=== PATIENT | male | born 1980 | race Two or more races ===

== ENCOUNTER 2017-10-04 07:27 | Emergency (ER) | payer SELFPAY ==
[2017-10-04] MEDS ORDERED: Nitroglycerin 0.4 MG TAB (25 Tab Bottle) ONE (07:51)
[2017-10-04 07:58] LABS: #Basophils 0.2 thou/uL (0.0-0.2); #Eosinphils 0.3 thou/uL (0.0-0.7); #Lymphocytes 2.3 thou/uL (1.20-3.40); #Monocytes 0.5 thou/uL (0.11-0.59); #Neutrophils 4.8 thou/uL (1.40-6.50); %Basophils 2.1 % (0.0-1.0); %Eosinophils 3.4 % (0.0-10.0); %Lymphocytes 29.1 % (21.0-51.0); %Monocytes 5.9 % (0.0-10.0); %Neutrophils 59.5 % (42.0-75.0); Hemoglobin 16.4 g/dL (14.0-18.0); Mean Corpuscular HGB CONC 33.8 g/dL (32.0-36.0); Mean Corpuscular Hemoglobin 32.1 pg (27.0-31.0); Mean Platelet Volume 6.5 fL (7.4-10.4); Platelet Count 270 thou/uL (130-400); RBC Distribution Width 11.3 % (11.5-14.5)
[2017-10-04 08:14] LABS: ALT (SGPT) 97 U/L (8-55); AST (SGOT) 58 U/L (5-34); Albumin 4.7 g/dL (3.5-5.0); Alkaline Phosphatase 98 U/L (40-150); Anion Gap 17 mmol/L (10-20); BUN (Urea Nitrogen) 10 mg/dL (8.9-20.6); Bilirubin, Total 0.8 mg/dL (0.2-1.2); Calc. Creatinine Clearance 0 mL/min (70-130); Calcium 9.6 mg/dL (7.8-10.44); Carbon Dioxide 19 mmol/L (22-29); Chloride 104 mmol/L (98-107); Estimated GFR-MDRD 85; Globulin 3.4 g/dL (2.4-3.5); Glucose 94 mg/dL (70-105); Lipase 25 U/L (8-78); Potassium 4.7 mmol/L (3.5-5.1); Protein, Total 8.1 g/dL (6.0-8.3); Sodium 133 mmol/L (136-145)
[2017-10-04 08:15] LABS: CKMB 1.2 ng/mL (0-6.6); Troponin I Less than 0.010 ng/mL (< 0.028)
--- NOTE | 2017-10-04 09:02 | RAD ---
CHEST 1 VIEW: Date: 10/04/17 HISTORY: Chest pain. FINDINGS: No comparison. Cardiac silhouette is magnified in projection. Ill-defined somewhat linear opacity projects over the left infrahilar level and extends to the left lateral lung base, overlying the posterior aspect of th e left lower rib. Mediastinum remains midline. No evidence of pneumothorax. IMPRESSION: Subtle left lower lobe infiltrate-like parenchymal opacity. Clinical correlation regarding other sign s and symptoms of left basilar pneumonitis versus other process is required. Please consider upright PA and lateral views of the chest when patient can undergo that exam. POS: [facility]
== END 2017-10-04 11:06 | disposition home or self-care (01) ==
LOC: ERS 07:27
DX: J18.9 Pneumonia, unspecified organism (principal); F17.210 Nicotine dependence, cigarettes, uncomplicated
CPT/HCPCS: 71045; 80053; 82553; 83690; 84484; 85025; 93005; 96360

== ENCOUNTER 2017-10-06 16:48 | Emergency (ER) | payer SELFPAY ==
[2017-10-06] MEDS ORDERED: Lidocaine 1% w/Epinephrine 1:100K 20 ML VIAL ONE (17:27)
[2017-10-06] MEDS ORDERED: Adacel (T-DAP) 0.5 ML VIAL ONE (18:19)
[2017-10-06] MEDS ORDERED: HYDROcodone/Acetaminophen 5/325 mg Tablet ONE (18:19)
[2017-10-06] MEDS ORDERED: Bacitracin Zinc 1 Packet ONE (18:26)
--- NOTE | 2017-10-06 19:25 | RAD ---
FOUR VIEWS OF THE RIGHT KNEE: 10/06/17 INDICATION: History of fall with right knee pain. COMPARISON: None. FINDINGS: No acute fracture or subluxation is evident. No joint capsular distention is evident. Soft tissues ar e normal appearing. IMPRESSION: No acute osseous abnormality. POS: [facility]
== END 2017-10-06 18:34 | disposition home or self-care (01) ==
LOC: ERS 16:48
DX: S81.011A Laceration without foreign body, right knee, initial encounter (principal); F17.210 Nicotine dependence, cigarettes, uncomplicated; W10.9XXA Fall (on) (from) unspecified stairs and steps, initial encounter
CPT/HCPCS: 12002; 90471; 90715; J2001

== ENCOUNTER 2017-10-28 23:06 | Emergency (ER) | payer SELFPAY ==
[2017-10-29] LABS: #Basophils 0.1 thou/uL (0.0-0.2); #Lymphocytes 2.4 thou/uL (1.20-3.40); #Monocytes 0.6 thou/uL (0.11-0.59); #Neutrophils 6.6 thou/uL (1.40-6.50); %Basophils 0.9 % (0.0-1.0); %Eosinophils 0.4 % (0.0-10.0); %Lymphocytes 24.9 % (21.0-51.0); %Monocytes 5.7 % (0.0-10.0); %Neutrophils 68.1 % (42.0-75.0); Hemoglobin 14.1 g/dL (14.0-18.0); Mean Corpuscular HGB CONC 34.7 g/dL (32.0-36.0); Mean Corpuscular Hemoglobin 32.3 pg (27.0-31.0); Mean Corpuscular Volume 92.8 fL (78.0-98.0); Mean Platelet Volume 6.2 fL (7.4-10.4); Platelet Count 268 thou/uL (130-400); Red Blood Cell (RBC) Count 4.37 mill/uL (4.70-6.10); White Blood Cell (WBC) Count 9.7 thou/uL (4.8-10.8)
[2017-10-29] MEDS ORDERED: Lorazepam 2 MG/ML VIAL ONE (00:19)
[2017-10-29 00:21] LABS: ALT (SGPT) 77 U/L (8-55); AST (SGOT) 72 U/L (5-34); Albumin 4.4 g/dL (3.5-5.0); Alkaline Phosphatase 81 U/L (40-150); Anion Gap 11 mmol/L (10-20); BUN (Urea Nitrogen) 15 mg/dL (8.9-20.6); Bilirubin, Total 0.9 mg/dL (0.2-1.2); CK (CPK) 1403 U/L (30-200); Calc. Creatinine Clearance 0 mL/min (70-130); Calcium 9.3 mg/dL (7.8-10.44); Carbon Dioxide 23 mmol/L (22-29); Chloride 103 mmol/L (98-107); Estimated GFR-MDRD 58; Glucose 102 mg/dL (70-105); Protein, Total 7.4 g/dL (6.0-8.3); Sodium 134 mmol/L (136-145)
[2017-10-29 00:25] LABS: CKMB 4.8 ng/mL (0-6.6); Troponin I Less than 0.010 ng/mL (< 0.028)
[2017-10-29 00:26] LABS: Potassium 2.8 mmol/L (3.5-5.1)
[2017-10-29] MEDS ORDERED: Potassium Chloride 20 MEQ TAB ONE ×2 (01:24→01:30)
[2017-10-29] MEDS ORDERED: Potassium Chloride 20 MEQ in Premix Bag 1 BAG IVPB SCH (01:30)
[2017-10-29 03:06] LABS: Troponin I Less than 0.010 ng/mL (< 0.028)
--- NOTE | 2017-10-29 07:53 | RAD ---
SINGLE VIEW OF THE CHEST: COMPARISON: 10/18/17. HISTORY: Depression. Chest pain after doing cocaine. FINDINGS: Single view of the chest shows a normal sized cardiomediastinal silhouette. There is no evidence of c onsolidation, mass, or pleural effusion. The bones are unremarkable. IMPRESSION: No evidence of acute cardiopulmonary disease. POS: [facility]
--- NOTE | 2017-10-30 19:56 | EKG ---
Test Reason : DRUGABUSE Blood Pressure : / mmHG Vent. Rate : 103 BPM Atrial Rate : 103 BPM P-R Int : 144 ms QRS Dur : 090 ms QT Int : 350 ms P-R-T Axes : 071 079 030 degrees QTc Int : 458 ms Sinus tachycardia Otherwise normal ECG Confirmed by ESTEFANY COE DO ([id number]), editorial assistant JESSIE ESCAMILLA ([id number] on 10/30/2017 7:55:59 PM Referred By: Confirmed By:ESTEFANY COE DO
== END 2017-10-29 04:40 | disposition home or self-care (01) ==
LOC: ERS 23:06
DX: M62.82 Rhabdomyolysis (principal); F14.10 Cocaine abuse, uncomplicated; F17.210 Nicotine dependence, cigarettes, uncomplicated
CPT/HCPCS: 36415; 71045; 80053; 80307; 82553; 83735; 84484; 85025; 93005; 96361; 96365; 96366; 96375; J2060; J3480

== ENCOUNTER 2017-12-13 18:02 | Emergency (ER) | payer SELFPAY ==
[2017-12-13] MEDS ORDERED: Acetaminophen 500 MG TAB ONE (18:36)
--- NOTE | 2017-12-13 19:32 | RAD ---
LEFT FOOT THREE VIEWS: HISTORY: Left foot injury. FINDINGS: Comminuted, predominantly oblique fracture of the fifth metatarsal shaft is present, with minimal med ial displacement of the distal fragment and mild apex medial angulation. No evidence of intraarticul ar extension. Lisfranc joint alignment is intact. IMPRESSION: Left fifth metatarsal fracture. POS: [facility]
== END 2017-12-13 19:29 | disposition home or self-care (01) ==
LOC: ERS 18:02
DX: S92.352A Displaced fracture of fifth metatarsal bone, left foot, initial encounter for closed fracture (principal); F17.210 Nicotine dependence, cigarettes, uncomplicated; V89.9XXA Person injured in unspecified vehicle accident, initial encounter
CPT/HCPCS: 99406

== ENCOUNTER 2017-12-21 21:03 | Emergency (ER) | payer BC, SELFPAY | END 2017-12-21 22:21 | disposition home or self-care (01) | LOC: ERS 21:03 | DX: S92.352A Displaced fracture of fifth metatarsal bone, left foot, initial encounter for closed fracture (principal); F17.210 Nicotine dependence, cigarettes, uncomplicated; Z79.899 Other long term (current) drug therapy; X50.1XXA Overexertion from prolonged static or awkward postures, initial encounter | CPT/HCPCS: 99283 ==

== ENCOUNTER 2018-03-02 08:31 | Emergency (ER) | payer BC, SELFPAY ==
[2018-03-02] MEDS ORDERED: Morphine 4 MG/ML VIAL ONE (09:03)
--- NOTE | 2018-03-02 09:31 | RAD ---
3 VIEWS RIGHT ANKLE: Date: 03/02/18 HISTORY: Right ankle injury after slipping off a ladder at work. Right ankle and heel pain. FINDINGS: There is a comminuted fracture involving the right calcaneus with fracture seen extending from the po sterior process of the calcaneus superiorly and extending in a plantar direction, as well as anterior ly, with fracture also involving the anterior process of the talus. There is slight separation of fra cture fragments without significant displacement. No additional fracture is seen, and there is no dis location seen. IMPRESSION: Mildly comminuted and fracture of the right calcaneus without significant displacement or d istraction of fracture fragments. POS: [facility]
== END 2018-03-02 10:28 | disposition home or self-care (01) ==
LOC: ERS 08:31
DX: S92.101A Unspecified fracture of right talus, initial encounter for closed fracture (principal); S92.001A Unspecified fracture of right calcaneus, initial encounter for closed fracture; F17.210 Nicotine dependence, cigarettes, uncomplicated; W11.XXXA Fall on and from ladder, initial encounter
CPT/HCPCS: 28400; 28430; 96372; J2270